=== PATIENT | female | born 1980 | race African-American/Black ===

== ENCOUNTER 2020-12-24 23:19 | Emergency (ER) | payer SELFPAY ==
[2020-12-24] MEDS ORDERED: Albuterol Sulfate 2.5 mg/3 ml Neb ONE (23:40)
[2020-12-24 23:54] LABS: #Basophils 0.1 10x3/uL (0.0-0.2); #Eosinphils 0.9 10x3/uL (0.0-0.5); #Monocytes 0.7 10x3/uL (0.0-1.1); #Neutrophils 2.7 10x3/uL (1.5-8.4); %Basophils 1.2 % (0.0-2.0); %Eosinophils 11.8 % (0.0-6.0); %Lymphocytes 41.7 % (18.0-47.0); %Monocytes 9.5 % (0.0-10.0); %Neutrophils 35.5 % (40.0-75.0); Hemoglobin 13.5 g/dL (12.0-15.5); Mean Corpuscular HGB CONC 32.9 g/dL (32.0-36.0); Mean Corpuscular Hemoglobin 28.2 pg (27.0-33.0); Mean Corpuscular Volume 85.8 fl (81.6-98.3); Mean Platelet Volume 9.6 fl (7.4-10.4); Platelet Count 314 10x3/uL (150-450); RBC Distribution Width 13.3 % (11.5-14.5); Red Blood Cell (RBC) Count 4.78 10x6/uL (3.90-5.03); White Blood Cell (WBC) Count 7.7 10x3/uL (3.5-10.5)
[2020-12-25 01:55] LABS: ALT (SGPT) 15 U/L (8-55); AST (SGOT) 17 U/L (5-34); Albumin 3.8 g/dL (3.5-5.0); Alkaline Phosphatase 91 U/L (40-110); Anion Gap 12 mmol/L (10-20); BUN (Urea Nitrogen) 11 mg/dL (7.0-18.7); Bilirubin, Total 0.2 mg/dL (0.2-1.2); Calc. Creatinine Clearance 0 mL/min (70-130); Calcium 7.9 mg/dL (7.8-10.44); Carbon Dioxide 22 mmol/L (22-29); Chloride 108 mmol/L (98-107); Globulin 3.2 g/dL (2.4-3.5); Glucose 161 mg/dL (70-105); Potassium 3.3 mmol/L (3.5-5.1); Sodium 139 mmol/L (136-145)
== END 2020-12-25 02:13 | disposition home or self-care (01) ==
LOC: CSHERS 23:19
DX: J45.41 Moderate persistent asthma with (acute) exacerbation (principal)
CPT/HCPCS: 36415; 71045; 80053; 83880; 84484; 85025; 93005; 94640; 94644; J7611

== ENCOUNTER 2021-01-04 23:27 | Emergency (ER) | payer SELFPAY ==
[2021-01-04 23:45] LABS: #Basophils 0.1 10x3/uL (0.0-0.2); #Eosinphils 0.7 10x3/uL (0.0-0.5); #Monocytes 0.9 10x3/uL (0.0-1.1); #Neutrophils 3.5 10x3/uL (1.5-8.4); %Basophils 0.5 % (0.0-2.0); %Eosinophils 7.3 % (0.0-6.0); %Lymphocytes 44.5 % (18.0-47.0); %Monocytes 9.8 % (0.0-10.0); Hemoglobin 14.2 g/dL (12.0-15.5); Mean Corpuscular HGB CONC 32.7 g/dL (32.0-36.0); Mean Corpuscular Hemoglobin 28.7 pg (27.0-33.0); Mean Corpuscular Volume 87.9 fl (81.6-98.3); Mean Platelet Volume 9.2 fl (7.4-10.4); Platelet Count 295 10x3/uL (150-450); RBC Distribution Width 14.1 % (11.5-14.5); Red Blood Cell (RBC) Count 4.94 10x6/uL (3.90-5.03); White Blood Cell (WBC) Count 9.4 10x3/uL (3.5-10.5)
[2021-01-05] MEDS ORDERED: EPINEPHrine 1 MG/ML AMP ONE (00:02)
[2021-01-05] MEDS ORDERED: Ipratropium Bromide 2.5 ml Neb ONE (00:23)
[2021-01-05] MEDS ORDERED: Albuterol Sulfate 2.5 mg/3 ml Neb ONE (00:23)
[2021-01-05 00:27] LABS: ALT (SGPT) 26 U/L (8-55); AST (SGOT) 13 U/L (5-34); Albumin 4.2 g/dL (3.5-5.0); Alkaline Phosphatase 102 U/L (40-110); Anion Gap 15 mmol/L (10-20); BUN (Urea Nitrogen) 9 mg/dL (7.0-18.7); Bilirubin, Total 0.3 mg/dL (0.2-1.2); Calc. Creatinine Clearance 0 mL/min (70-130); Calcium 9.2 mg/dL (7.8-10.44); Carbon Dioxide 26 mmol/L (22-29); Chloride 103 mmol/L (98-107); Globulin 3.5 g/dL (2.4-3.5); Glucose 115 mg/dL (70-105); Potassium 3.7 mmol/L (3.5-5.1); Protein, Total 7.7 g/dL (6.0-8.3); Sodium 140 mmol/L (136-145)
== END 2021-01-05 01:56 | disposition home or self-care (01) ==
LOC: CSHERS 23:27
DX: J45.901 Unspecified asthma with (acute) exacerbation (principal); R00.0 Tachycardia, unspecified
CPT/HCPCS: 71045; 80053; 83880; 84484; 85025; 93005; 93010; 96365; 96372; 96375; J0171; J7611

== ENCOUNTER 2021-07-19 16:56 | Emergency (ER) | payer SELFPAY | END 2021-07-19 18:07 | disposition home or self-care (01) | LOC: CSHERS 16:56 | DX: L03.114 Cellulitis of left upper limb (principal); B00.1 Herpesviral vesicular dermatitis; J45.909 Unspecified asthma, uncomplicated | CPT/HCPCS: 99283 ==

== ENCOUNTER 2022-01-07 14:14 | Emergency (ER) | payer SELFPAY ==
[2022-01-07 17:15] LABS: HIV (1/2) Antibody/Antigen Non-Reactive (NonReactive); HIV 1/2 INDEX 0.11 S/CO (<1.00)
[2022-01-08 10:42] LABS: Chlamydia by PCR Not Detected (NotDetected); GC by PCR Not Detected (NotDetected)
== END 2022-01-07 16:43 | disposition home or self-care (01) ==
LOC: CSHERS 14:14
DX: N89.8 Other specified noninflammatory disorders of vagina (principal); L29.2 Pruritus vulvae; Z20.2 Contact with and (suspected) exposure to infections with a predominantly sexual mode of transmission
CPT/HCPCS: 36415; 87389; 87480; 87491; 87510; 87591; 87660; 99283

== ENCOUNTER 2022-01-08 06:24 | Emergency (ER) | payer SELFPAY ==
[2022-01-08 07:31] LABS: Bilirubin Neg (Negative); Blood, Urine 10 (Negative); Clarity Clear (Clear); Glucose, Urine (Dipstick) Normal (Negative); Ketone, Urine Negative (Negative); Leukocyte Negative (Negative); Nitrite Negative (Negative); Pregnancy Test - Urine (BHCG) Negative (Negative); Pregu Control Background? CLEAR/WHITE (CLR/WHITE); Pregu Control Bar Appear? YES (CONTROL BAR); Protein, Urine (Dipstick) Negative (Neg-Trace); Urobilinogen Normal mg/dL (Less than 2)
[2022-01-08 07:37] LABS: Bacteria/HPF Rare-Few HPF (None Seen); RBC/HPF 0-3 HPF (0-3); Squamous Epithelial 0-3 HPF (0-3); WBC/HPF 0-3 HPF (0-3)
[2022-01-08] MEDS ORDERED: cefTRIAXone\\ROCEPHIN 500 MG VIAL ONE (08:01)
[2022-01-08] MEDS ORDERED: Azithromycin 250 MG TAB ONE (08:02)
[2022-01-08] MEDS ORDERED: Ondansetron ODT 4 MG TAB ONE (08:02)
== END 2022-01-08 08:28 | disposition home or self-care (01) ==
LOC: CSHERS 06:24
DX: N76.0 Acute vaginitis (principal); R30.0 Dysuria; Z20.2 Contact with and (suspected) exposure to infections with a predominantly sexual mode of transmission
CPT/HCPCS: 81003; 81015; 81025; 87086; 96372; 99283; J0696; Q0162

== ENCOUNTER 2022-01-28 14:42 | Emergency (ER) | payer SELFPAY | END 2022-01-28 15:22 | disposition home or self-care (01) | LOC: CSHERS 14:42 | DX: L29.9 Pruritus, unspecified (principal) | CPT/HCPCS: 99282 ==